=== PATIENT | female | born 1955 | race Two or more races ===

== ENCOUNTER 2023-08-29 12:00 | Inpatient (IN) | payer OTHER ==
[2023-08-29 14:27] VITALS: BMI 21.9
[2023-08-29] MEDS ORDERED: NALOXONE HCL 0.4 MG/ML VIAL IM PRN (16:14)
[2023-08-29] MEDS ORDERED: ACETAMINOPHEN 325 MG TABLET (FP) PO PRN (16:14)
[2023-08-29] MEDS ORDERED: POLYETHYLENE GLYCOL (HEALTHYLAX) 3350 17 GM PACKET PO PRN (16:14)
[2023-08-29] MEDS ORDERED: MAGNESIUM HYDROX 2400MG/30ML ORAL SUSPENSION 30 ML CUP PO PRN (16:14)
[2023-08-29] MEDS ORDERED: DICYCLOMINE HCL 10 MG CAPSULE PO PRN (16:14)
[2023-08-29] MEDS ORDERED: ONDANSETRON *ODT* 4 MG TABLET SL PRN (16:14)
[2023-08-29] MEDS ORDERED: NALOXONE (NARCAN) HCL 4 MG/0.1 ML SPRAY NS PRN (16:14)
[2023-08-29] MEDS ORDERED: guaiFENesin 600 MG TABLET.ER (FP) PO PRN (16:14)
[2023-08-29] MEDS ORDERED: IBUPROFEN 400 MG TABLET (FP) PO ONE (17:10)
[2023-08-29] MEDS: IBUPROFEN 400 MG TABLET (FP) PO PRN (17:13)
[2023-08-29] MEDS ORDERED: cloNIDine HCL 0.1 MG TABLET ONE (18:17)
[2023-08-29] MEDS: cloNIDine HCL 0.1 MG TABLET PO PRN (18:40)
[2023-08-29] MEDS: MELATONIN 5 MG TABLETS PO SCH (22:43)
[2023-08-29] MEDS: hydrOXYzine PAMOATE 25 MG CAPSULE (FP) PO PRN (22:43)
[2023-08-29] MEDS: THIAMINE 100 MG TABLET PO SCH (22:43)
[2023-08-30] MEDS: BICTEGRAV/EMTRICIT/TENOFOV (BIKTARVY) 50-200-25 MG TABLET PO SCH (07:30)
[2023-08-30] MEDS: GABAPENTIN 300 MG CAPSULE PO SCH (11:19)
[2023-08-30] MEDS: PANTOPRAZOLE 40 MG TABLET PO SCH (11:19)
[2023-08-30] MEDS: LISINOPRIL 20 MG TABLET PO SCH (11:20)
[2023-08-30] MEDS: PRENATAL VITAMINS W/ FOLIC ACID TABLET (FP) PO SCH (11:20)
[2023-08-30] MEDS: LORATADINE 10 MG TABLET PO SCH (11:20)
[2023-08-30] MEDS: SERTRALINE HCL 50 MG TABLET (FP) PO SCH (11:21)
[2023-08-30] MEDS: IBUPROFEN 600 MG TABLET (FP) PO PRN (11:30)
[2023-08-30] MEDS: METHOCARBAMOL 500 MG TABLET PO PRN (11:30)
[2023-08-30] MEDS: BENZOCAINE/MENTHOL (CHLORASEPTIC ) LOZENGE MM PRN (11:35)
[2023-08-30 12:45] LABS: HEMATOCRIT 40.6 % (32.4-45.2); HEMOGLOBIN 13.7 GM/dL (10.7-15.3); MCH 34.1 pg (25.7-33.7); MCHC 33.9 g/dl (32.0-36.0); MEAN CELL VOLUME 100.8 fl (80-96); MEAN PLT VOLUME 7.4 fl (7.5-11.1); PLATELET COUNT 305 10^3/uL (134-434); RBC 4.02 M/mm3 (3.60-5.2); RDW 12.4 % (11.6-15.6); WHITE BLOOD COUNT 7.4 K/mm3 (4.0-10.0)
[2023-08-30 14:09] LABS: POTASSIUM 4.5 mmol/L (3.5-5.1); SODIUM 140 mmol/L (136-145)
[2023-08-30 14:13] LABS: CALCIUM 9.5 mg/dL (8.5-10.1)
[2023-08-30 14:14] LABS: ALBUMIN 3.6 g/dl (3.4-5.0); BLOOD UREA NITROGEN 20.4 mg/dL (7-18); CO2 28 mmol/L (21-32); GLUCOSE,RANDOM 89 mg/dL (74-106)
[2023-08-30 14:17] LABS: SGOT/AST 30 U/L (15-37); SGPT/ALT 30 U/L (13-61)
[2023-08-30 14:18] LABS: BILIRUBIN,TOTAL 0.8 mg/dL (0.2-1); TOT PROT 7.4 g/dl (6.4-8.2)
[2023-08-30 14:19] LABS: ALK PHOS 86 U/L (45-117)
[2023-08-30 14:27] LABS: ANION GAP 4 mmol/L (4-13); CHLORIDE 108 mmol/L (98-107); CREATININE 0.7 mg/dL (0.55-1.3)
[2023-08-30] MEDS: METHYL SALICYLATE/MENTHOL OINT 30 GM TUBE TP ONE (22:47)
[2023-08-30] MEDS: BENZONATATE 200 MG CAPSULE PO PRN (22:48)
[2023-08-31] MEDS: PANTOPRAZOLE 40 MG TABLET PO SCH (07:21)
[2023-08-31] MEDS: MAG HYDROX/AL HYDROX/SIMETH 30 ML UNIT-DOSE CUP PO PRN (07:40)
[2023-08-31] MEDS: METHYL SALICYLATE/MENTHOL OINT 30 GM TUBE TP SCH (10:42)
[2023-08-31] MEDS: BISMUTH SUBSALICYLATE 524 MG/30 ML PO PRN (12:43)
[2023-09-02 05:42] VITALS: RESP 16
[2023-09-02] MEDS: LOPERAMIDE HCL 2 MG CAPSULE PO PRN (09:43)
[2023-09-02 13:16] VITALS: BP 147/85; PULSE 63; TEMP 98.9
== END 2023-09-02 13:33 | disposition other institution (70) | DRG 897 ==
LOC: YASAS 12:00 → Y6N 17:19
PROVIDERS: ADMIT Allergy & Immunology; ATTEND Surgery
PROC: HZ2ZZZZ Detoxification Services for Substance Abuse Treatment (ICD-10-PCS; principal; 2023-08-29)
DX: F10.20 Alcohol dependence, uncomplicated (principal); F14.20 Cocaine dependence, uncomplicated; F17.210 Nicotine dependence, cigarettes, uncomplicated; F41.8 Other specified anxiety disorders; Z21 Asymptomatic human immunodeficiency virus [HIV] infection status; Z79.899 Other long term (current) drug therapy; I10 Essential (primary) hypertension; K21.9 Gastro-esophageal reflux disease without esophagitis; M79.7 Fibromyalgia; M62.838 Other muscle spasm; R05.3 Chronic cough; Z62.810 Personal history of physical and sexual abuse in childhood; Z63.8 Other specified problems related to primary support group; Z88.8 Allergy status to other drugs, medicaments and biological substances
CPT/HCPCS: 0241U-QW; 36415; 73502-TC-RT-FY; 80053; 80305; 80307; 85027; 86593; 86780; 87811; 93005; 93010

== ENCOUNTER 2023-09-02 12:44 | Inpatient (IN) | payer OTHER ==
[2023-09-02] MEDS ORDERED: NALOXONE (NARCAN) HCL 4 MG/0.1 ML SPRAY NS PRN (14:40)
[2023-09-02] MEDS ORDERED: BENZOCAINE/MENTHOL (CHLORASEPTIC ) LOZENGE MM PRN (14:40)
[2023-09-02] MEDS ORDERED: NALOXONE HCL 0.4 MG/ML VIAL IVPUSH PRN (14:40)
[2023-09-02] MEDS ORDERED: POLYETHYLENE GLYCOL (HEALTHYLAX) 3350 17 GM PACKET PO PRN (14:40)
[2023-09-02] MEDS ORDERED: BENZONATATE 200 MG CAPSULE PO PRN (14:40)
[2023-09-02] MEDS ORDERED: guaiFENesin 600 MG TABLET.ER (FP) PO PRN (14:40)
[2023-09-02] MEDS: hydrOXYzine PAMOATE 25 MG CAPSULE (FP) PO PRN (15:46)
[2023-09-02] MEDS: METHOCARBAMOL 500 MG TABLET PO PRN (17:02)
[2023-09-02] MEDS: MELATONIN 5 MG TABLETS PO SCH (21:53)
[2023-09-02] MEDS: THIAMINE 100 MG TABLET PO SCH (21:53)
[2023-09-02] MEDS: MAG HYDROX/AL HYDROX/SIMETH 30 ML UNIT-DOSE CUP PO PRN (21:55)
[2023-09-02] MEDS: LORATADINE 10 MG TABLET PO SCH (22:01)
[2023-09-03] MEDS: BICTEGRAV/EMTRICIT/TENOFOV (BIKTARVY) 50-200-25 MG TABLET PO SCH (07:16)
[2023-09-03] MEDS: cloNIDine HCL 0.1 MG TABLET PO ONE (07:40)
[2023-09-03] MEDS: PANTOPRAZOLE 40 MG TABLET PO SCH (10:21)
[2023-09-03] MEDS: PRENATAL VITAMINS W/ FOLIC ACID TABLET (FP) PO SCH (10:21)
[2023-09-03] MEDS: LISINOPRIL 20 MG TABLET PO SCH (10:21)
[2023-09-03] MEDS: SERTRALINE HCL 50 MG TABLET (FP) PO SCH (10:21)
[2023-09-03] MEDS: GABAPENTIN 300 MG CAPSULE PO SCH ×2 (10:21→13:05)
[2023-09-03] MEDS: BACLOFEN 10 MG TABLET (FP) PO SCH (13:05)
[2023-09-03] MEDS: CARBAMIDE PEROXIDE 6.5% OTIC 15 ML BOTTLE AU SCH (13:05)
[2023-09-03] MEDS: LOPERAMIDE HCL 2 MG CAPSULE PO PRN (15:03)
[2023-09-03] MEDS: IBUPROFEN 600 MG TABLET (FP) PO PRN (18:49)
[2023-09-03] MEDS: METHYL SALICYLATE/MENTHOL OINT 30 GM TUBE TP SCH (21:22)
[2023-09-04] MEDS: PANTOPRAZOLE 40 MG TABLET PO SCH (06:42)
[2023-09-04] MEDS ORDERED: TUBERCULIN PPD 5 TU/0.1ML VIAL ID ONE ×2 (11:12→12:20)
[2023-09-04] MEDS: amLODIPine BESYLATE 5 MG TABLET (FP) PO ONE (18:22)
[2023-09-04] MEDS: MELATONIN 5 MG TABLETS PO SCH (21:33)
[2023-09-05] MEDS: LISINOPRIL 20 MG TABLET PO SCH (06:25)
[2023-09-05] MEDS: amLODIPine BESYLATE 5 MG TABLET (FP) PO SCH (09:31)
[2023-09-05] MEDS: LIDOCAINE 4% PATCH TP SCH (15:35)
[2023-09-05] MEDS: TRIMETHOBENZAMIDE HCL 200MG/2ML INJ IM ONE (15:35)
[2023-09-05] MEDS: amLODIPine BESYLATE 2.5 MG TABLET (FP) PO ONE (15:40)
[2023-09-05] MEDS: ONDANSETRON *ODT* 4 MG TABLET SL PRN (18:55)
[2023-09-05] MEDS: ACETAMINOPHEN 325 MG TABLET (FP) PO PRN (20:00)
[2023-09-05] MEDS: SUVOREXANT 10 MG TABLET PO PRN (21:51)
[2023-09-05] MEDS: LIDOCAINE PATCH REMOVAL MC SCH (21:54)
[2023-09-06] MEDS: BICTEGRAV/EMTRICIT/TENOFOV (BIKTARVY) 50-200-25 MG TABLET PO SCH (06:57)
[2023-09-06] MEDS: amLODIPine BESYLATE 2.5 MG TABLET (FP) PO SCH (10:15)
[2023-09-06] MEDS: IBUPROFEN 400 MG TABLET (FP) PO PRN (15:42)
[2023-09-06] MEDS: HYDROCORTISONE 1% TOPICAL OINT 30 GM TUBE TP PRN (18:32)
[2023-09-07] MEDS: MAGNESIUM HYDROX 2400MG/30ML ORAL SUSPENSION 30 ML CUP PO PRN (22:05)
[2023-09-08 07:05] VITALS: TEMP 96.9
[2023-09-08 08:57] VITALS: BP 145/89; PULSE 74; RESP 18
== END 2023-09-08 09:52 | disposition home or self-care (01) | DRG 895 ==
LOC: YASAS 12:44 → Y3NR 12:46 → Y5N 09-03 18:06
PROVIDERS: ADMIT Allergy & Immunology; ATTEND Psychiatry & Neurology Pain Medicine
PROC: HZ42ZZZ Group Counseling for Substance Abuse Treatment, Cognitive-Behavioral (ICD-10-PCS; principal; 2023-09-02)
DX: F10.20 Alcohol dependence, uncomplicated (principal); F14.20 Cocaine dependence, uncomplicated; F19.282 Other psychoactive substance dependence with psychoactive substance-induced sleep disorder; F19.280 Other psychoactive substance dependence with psychoactive substance-induced anxiety disorder; F17.210 Nicotine dependence, cigarettes, uncomplicated; F19.24 Other psychoactive substance dependence with psychoactive substance-induced mood disorder; F31.9 Bipolar disorder, unspecified; F41.8 Other specified anxiety disorders; Z21 Asymptomatic human immunodeficiency virus [HIV] infection status; I10 Essential (primary) hypertension; K21.9 Gastro-esophageal reflux disease without esophagitis; M17.0 Bilateral primary osteoarthritis of knee; M79.7 Fibromyalgia; M54.50 Low back pain, unspecified; G89.29 Other chronic pain; L30.9 Dermatitis, unspecified; D17.1 Benign lipomatous neoplasm of skin and subcutaneous tissue of trunk; H61.20 Impacted cerumen, unspecified ear; Z99.89 Dependence on other enabling machines and devices; Z88.8 Allergy status to other drugs, medicaments and biological substances
CPT/HCPCS: 36415; 86803; J0475; Q0162